=== PATIENT | female | born 1980 | race Caucasian/White ===

== ENCOUNTER 2021-11-08 17:09 | Emergency (ER) | payer OTHER ==
[~2021-11-08] VITALS: Ht 165.1 cm; Wt 59.5 kg
[~2021-11-08 17:09] MED LIST: AMOXICILLIN500 MG PO; AUGMENTIN875TAB PO; CYCLOBENZAPR10 MG PO; FLONASE NASAL50 MCG; MUCINEX600 MG PO; NAPROSYN500 MG PO; PREDNISONE20 MG PO; TAM75CAP PO
[2021-11-08 17:58] LABS: HEMATOCRIT 40.9 % (37.0-47.0); IMMATURE GRANULOCYTES 0.1 % (0.0-5.0); MEAN CELL VOLUME 89.1 fL CALC (80.0-100.0); MEAN CORPUSCULAR HGB 28.3 pG CALC (26.0-32.0); MEAN CORPUSCULAR HGB CONC 31.8 g/dL CAL (32.0-36.0); NEUT# 4.17 thou/uL (2.00-7.15); RED BLOOD COUNT 4.59 mill/uL (4.20-5.60); RED CELL DISTRI WIDTH 13.7 % (11.5-15.5)
[2021-11-08 18:13] LABS: ALBUMIN 4.4 g/dL (3.2-5.0); ALKALINE PHOSPHATASE 90 u/l (38-126); ANION GAP 11 (6-22 (CALC)); BILIRUBIN, TOTAL 0.4 mg/dL (0.0-1.4); BUN 12 mg/dL (7-17); BUN/CREATININE RATIO 12 (12-20 (CALC)); CARBON DIOXIDE 30 mmol/l (22-30); CHLORIDE 101 mmol/l (95-108); GFR > 60 ML/MIN (>=60 (CALC)); GFR FOR AFR.AMER. > 60 ML/MIN (>=60 (CALC)); LIPASE 83 u/l (23-300); POTASSIUM 3.8 mmol/l (3.5-5.1); SGOT/AST 33 u/l (14-36); SODIUM 137 mmol/l (137-146); TOTAL PROTEIN 8.1 g/dL (6.3-8.2)
[2021-11-08 18:17] LABS: ACT PARTIAL THROMBO TIME 26.3 SECONDS (20.0-32.5); PROTHROMBIN TIME 10.2 SECONDS (9.0-12.5)
[2021-11-08 19:22] VITALS: BP 146/94
== END 2021-11-08 19:22 | disposition home or self-care (01) | DRG 310 ==
LOC: ED 17:09
DX: R00.2 Palpitations (principal); N18.9 Chronic kidney disease, unspecified; Z20.822 Contact with and (suspected) exposure to COVID-19